=== PATIENT | female | born 1965 | race Caucasian/White ===

== ENCOUNTER 2022-10-11 12:31 | Outpatient (CLI) | payer OTHER, SELFPAY ==
--- NOTE | 2022-10-11 14:06 | W.PM.STED ---
Stress Test Note Date Time Seen by Provider: Date Seen: 10/11/22 Date of test: 10/11/22 Providers Referring provider: Tricia Stern Primary care provider: Tricia Stern Stress test physician: Meri Lopez Stress Test Note Stress test ordered: Stress Echo Indication for test: Chest pain, cardiac stress test medical history reviewed. Stress test medicine: None Results discussion: Resting EKG: Sinus rhythm, 61 beats per minute Resting blood pressure: 126/86 Patient exercised on the treadmill following a standard [place] protocol. She exercised to 12 minutes, terminating test due to reaching near maximal heart rate as well as reaching exercise capacity. She had no arrhythmias, no EKG evidence of ischemia. With this level of exercise, she achieved 12.1 Mets. She had a maximum heart rate of 164 beats per minute which was 118% of a calculated target 138, calculated maximal heart rate 162. She had maximum systolic blood pressure 174/80, rate pressure product of 28,536. She tolerated this exercise wonderfully. Impression: Subjectively negative, objectively negative EKG portion of this stress echo. Follow up suggested: Await echo images to couple this for a full formal diagnostic, patient discharged to home in excellent condition.
== END 2022-10-11 12:32 | disposition home or self-care (01) ==
LOC: STRESS 12:31
PROVIDERS: PCP Emergency Medicine; Visit Provider Emergency Medicine
DX: R07.9 Chest pain, unspecified (principal)
CPT/HCPCS: 93016; 93325; 93351

== ENCOUNTER 2023-11-22 08:30 | Outpatient (CLI) | payer OTHER, SELFPAY | END 2023-11-22 08:31 | disposition home or self-care (01) | LOC: NFLDREF 11-26 18:59 | PROVIDERS: PCP Emergency Medicine; Referring Provider Emergency Medicine; Visit Provider Emergency Medicine | DX: E78.00 Pure hypercholesterolemia, unspecified (principal); R53.83 Other fatigue | CPT/HCPCS: 80053; 80061; 82306 ==

== ENCOUNTER 2024-01-31 09:50 | Outpatient (CLI) | payer OTHER, SELFPAY ==
--- NOTE | 2024-01-31 10:15 | MM_ITS ---
Patient: YARI BRAGG Facility:?[facility] Patient ID:?[id number] Site Patient ID:?[id number]. Site [id number]. :?[id number] Study:?XRay-Breast Bilateral 3D-01/31/2024 10:29:44 AM Ordering Physician:Keesha Final Report: BILATERAL SCREENING MAMMOGRAM WITH COMPUTER-AIDED DETECTION AND TOMOSYNTHESIS TECHNIQUE: CC and MLO views were obtained. These mammographic images have been obtained using full-field digital technique. These mammographic images were interpreted with the benefit of computer-aided detection. Breast Tomosynthesis was used in this interpretation. COMPARISON FILM: 10/11/2020, 12/03/2017, 11/22/2016. FINDINGS: There are scattered areas of fibroglandular density. IMPRESSION: There is no radiographic evidence for malignancy. ASSESSMENT: BI-RADS Category 1: Negative RECOMMENDATION: Routine screening mammogram in 1 year. A lay language report of this examination will be provided to the patient. Kirt Becker M.D. Diagnostic Radiologist [email or web address] DSM/sp R& Transcribed: 4:19 p.m. SP/Dictated by: Kirt Becker MD @ 01/31/2024 12:32:00 PM Signed by:?Kirt Becker MD @01/31/2024 4:21:34 PM (Electronic Signature)
== END 2024-01-31 09:51 | disposition home or self-care (01) ==
LOC: MAMMO 09:51
PROVIDERS: PCP Emergency Medicine; Visit Provider Family Medicine
DX: Z12.31 Encounter for screening mammogram for malignant neoplasm of breast (principal)
CPT/HCPCS: 77063; 77067

== ENCOUNTER 2024-05-24 18:35 | Emergency (ER) | payer OTHER, SELFPAY ==
[2024-05-24] VITALS (20 sets, daily range): BP systolic 107–130; BP diastolic 75–96; PULSE 53–62; RESP 14–20; TEMP 36.9; O2SAT 95–98; BMI 30.6
--- NOTE | 2024-05-24 19:05 | CRLHL7_ITS ---
For Patients: As a result of the Century Cures Act, medical imaging exams and procedure reports are released immediately into your electronic medical record. You may view this report before your referring provider. If you have questions, please contact your health care provider. INDICATION: Short of breath. Chest pain. COMPARISON: : 25 September 2022 TECHNIQUE: Two view chest. FINDINGS: The lungs are clear. The heart, mediastinum and pulmonary vessels are of normal size. There is no evidence of pleural disease. IMPRESSION: Negative chest. Dictated by Valentino Mathias MD @ 05/24/2024 8:17:30 PM (Electronically Signed)
--- NOTE | 2024-05-24 19:13 | ED.CHESTPAIN ---
HPI - Chest Pain General Date Seen: 05/24/24 Chief Complaint: Chest Pain Stated Complaint: chest pain L side Time Seen by Provider: 05/24/24 18:45 Source: patient and family Mode of arrival: ambulatory Limitations: no limitations History of Present Illness HPI narrative: Patient is a 59-year-old female who presents here ambulatory with her with a history of chest pain on the left side of her chest with maybe some radiation to her jaw, bilaterally. There is no radiation to her arm her back. She describes and now is just pressure with no pain, this is been now for the last 12 hours or so on off lasting for a few minutes to seconds, and then going away with some possible little pressure, she describes burping also with this. She has no history of previous heart disease, she does have a history of hyperlipidemia, negative family history negative hypertension negative diabetes no history of previous DVTs or pulmonary emboli although she did drive back from [place] today as she has been taking care of her [id number] premature grandchildren. There was some increased stress over the course of the weekend as there is no nursing help. She had a pull on overnight shift. So possibly increased stress. No increased leg swelling, no syncope, no tearing sensation in her chest. Denies a history of drug use or alcohol. Or smoking history. MD complaint: chest pain and chest heaviness Onset (ago): hour(s) Timing of current episode: episodic Prior episodes: No Onset: during rest and during exertion Pain location: substernal and left chest Pain radiation: jaw/teeth Severity: mild Quality: heaviness Relieving factors: nothing Exacerbating factors: nothing Treatment prior to arrival: none Risk Factors Coronary artery disease risk factors: hyperlipidemia Thoracic aortic dissection risk factors: none Related Data On Oral Contraceptives: No Previous Rx's ?Medication ?Instructions ?Recorded sertraline 25 mg tablet 25 mg PO QDAY #90 tabs 11/08/23 rosuvastatin 20 mg tablet 20 mg PO QDAY #90 tabs 02/28/24 valacyclovir 1 gram tablet 1,000 mg PO TID #21 tabs 02/28/24 Allergies Allergy/AdvReac Type Severity Reaction Status Date / Time No Known Drug Allergies Allergy Verified 02/28/24 09:57 Review of Systems Status of ROS Reports: 10 or more systems reviewed and unremarkable except as noted in History and below [facility] Medical History Herpes zoster ?B02.9 - Zoster without complications (ICD-10) COVID-19 virus infection ?U07.1 - COVID-19 (ICD-10) Surgical History History of colonoscopy ?Z98.890 - Other specified postprocedural states (ICD-10) Family History Paternal Grandmother Breast cancer Father Coronary artery disease High blood pressure Hyperlipidemia Maternal Grandmother Diabetes Paternal Grandfather Melanoma Other Stroke Social History Narrative: Non smoker Does not drink alcohol Does not use illicit drugs Smoking Status: Never smoker Non-prescribed substance use: denies use Little interest or pleasure in doing things: several days Feeling down, depressed, or hopeless: several days Exam Narrative Exam Narrative: Patient is speaking normally, no problem with slurring words, oriented x3. Head eyes ears nose and throat exam show equal pupils, no scleral icterus, extraocular muscles are normal, no facial droop, speech is normal, trachea normal and midline. Thyroid normal midline palpable not enlarged. Chest shows symmetrical rise bilaterally, normal auscultation with no wheezes, no increased work of breathing, no overt bruising or lesions seen, no tenderness is noted on auscultation. Heart sounds normal with no S3-S4 no murmurs clicks or gallops. Abdomen shows no obvious masses or hepatosplenomegaly, no organomegaly, bowel sounds are normal in all quadrants. No tenderness is noted also in all quadrants. Upper and lower extremities show normal power, normal range of motion, pulses are normal, sensations normal, fine motor movements are normal, pelvis is stable to rocking. Cervical spine shows normal range of motion, and palpably not tender. Thoracic spine shows normal range of motion, and palpably not tender, lumbar spine shows no tenderness to palpation percussion and is otherwise normal range of motion. Skin shows no rashes, petechiae or eccymosis. Const Vital Signs, click to edit/add: Vital Signs - 24 hr 05/24/24 18:53 05/24/24 19:05 05/24/24 19:09 Temperature 98.5 F Pulse Rate 60 58 L Pulse Rate [Left Pulse Oximeter] 62 Respiratory Rate 20 16 Blood Pressure 119/81 Blood Pressure [Left Upper Arm] 130/96 H Pulse Oximetry 96 96 97 Oxygen Delivery Method Room Air 05/24/24 19:15 05/24/24 19:30 05/24/24 19:32 Temperature Pulse Rate 62 56 L 56 L Pulse Rate [Left Pulse Oximeter] Respiratory Rate 18 Blood Pressure 130/81 Blood Pressure [Left Upper Arm] Pulse Oximetry 97 97 98 Oxygen Delivery Method 05/24/24 19:45 05/24/24 20:00 05/24/24 20:01 Temperature Pulse Rate 56 L 57 L 56 L Pulse Rate [Left Pulse Oximeter] Respiratory Rate Blood Pressure 124/87 Blood Pressure [Left Upper Arm] Pulse Oximetry 97 97 98 Oxygen Delivery Method 05/24/24 20:02 05/24/24 20:15 05/24/24 20:30 Temperature Pulse Rate 58 L 60 54 L Pulse Rate [Left Pulse Oximeter] Respiratory Rate Blood Pressure Blood Pressure [Left Upper Arm] Pulse Oximetry 97 98 97 Oxygen Delivery Method 05/24/24 20:32 05/24/24 20:45 05/24/24 21:00 Temperature Pulse Rate 55 L 59 L 53 L Pulse Rate [Left Pulse Oximeter] Respiratory Rate 14 Blood Pressure 107/75 Blood Pressure [Left Upper Arm] Pulse Oximetry 96 98 96 Oxygen Delivery Method 05/24/24 21:02 05/24/24 21:15 05/24/24 21:30 Temperature Pulse Rate 55 L 56 L 58 L Pulse Rate [Left Pulse Oximeter] Respiratory Rate 14 Blood Pressure 112/76 Blood Pressure [Left Upper Arm] Pulse Oximetry 98 95 95 Oxygen Delivery Method 05/24/24 21:31 05/24/24 21:45 Temperature Pulse Rate 57 L 56 L Pulse Rate [Left Pulse Oximeter] Respiratory Rate 16 Blood Pressure 117/85 Blood Pressure [Left Upper Arm] Pulse Oximetry 95 95 Oxygen Delivery Method Documenting provider has reviewed patient's vital signs: yes Course Course ED Course: EKG x2 shows no acute changes troponins are negative she remains pain-free. I do think this is unlikely to be cardiac disease in no she does have some risk factors, heart score is low. I do think that she needs to follow up with her regular physician and possibly repeat the stress echo she has ongoing symptoms or findings. She was very comfortable this plan we will discharge her at this point. Reevaluation(s) Time of Reevaluation #1: 20:41 Reevaluation #1: Patient remains pain-free, we will repeat her troponin, an EKG. If she has on a negative or horizontal delta that I think we can let her go home, with follow-up. Vital Signs Vital signs: Initial Vital Signs Temperature 98.5 F 05/24/24 18:53 Temperature Source Temporal Artery Scan 05/24/24 18:53 Pulse Rate 62 05/24/24 18:53 Pulse Rhythm Regular 05/24/24 18:53 Pulse Strength 3+ Normal 05/24/24 18:53 Respiratory Rate 20 05/24/24 18:53 Blood Pressure 130/96 H 05/24/24 18:53 Blood Pressure Mean 107 H 05/24/24 18:53 Blood Pressure Position Sitting 05/24/24 18:53 Pulse Oximetry 96 05/24/24 18:53 Oxygen Delivery Method Room Air 05/24/24 18:53 Vital Signs Temperature 98.5 F 05/24/24 18:53 Pulse Rate 62 05/24/24 18:53 Respiratory Rate 20 05/24/24 18:53 Blood Pressure 130/96 H 05/24/24 18:53 Pulse Oximetry 96 05/24/24 18:53 Oxygen Delivery Method Room Air 05/24/24 18:53 Temperature 98.5 F 05/24/24 18:53 Pulse Rate 56 L 05/24/24 21:45 Respiratory Rate 16 05/24/24 21:31 Blood Pressure 117/85 05/24/24 21:31 Pulse Oximetry 95 05/24/24 21:45 Oxygen Delivery Method Room Air 05/24/24 18:53 Medications Administered Medications: Discontinued Medications Generic Name Dose Route Start Last Admin Trade Name Freq PRN Reason Stop Dose Admin Aspirin 324 mg 05/24/24 19:05 05/24/24 19:14 Aspirin 81 Mg Tab.Chew PO 05/24/24 19:06 324 mg ONCE ONE Administration MDM - Chest Pain MDM Narrative Medical decision making narrative: During the evaluation of this patient I considered multiple differential diagnosis is. The life-threatening differential diagnosis include coronary disease/IN, pulmonary embolism, pneumothorax, pneumonia, and aortic dissection. Other differential diagnosis included but were not limited to pericarditis, myocarditis, chest wall pain, GERD, esophageal rupture, rib fracture contusion, pleurisy, as well as other etiologies. Medical Records Data Attestation: I reviewed the patient's medical records. Lab Data Attestation: I reviewed the patient's lab results. Labs: Lab Results 05/24/24 05/24/24 Range/Units 19:00 21:00 WBC 4.99 (4.50-11.00) K/uL RBC 4.81 (4.00-5.20) m/uL Hgb 13.9 (12.0-16.0) gm/dL Hct 44.1 (33.0-51.0) % MCV 92 (80-100) fL MCH 29 (26-34) pg MCHC 32 (32-36) gm/dL RDW Coeff of [place] 12.5 (11.5-15.5) % Plt Count 186 (140-440) K/uL Neut % (Auto) 41.5 L (42.0-72.0) % Lymph % (Auto) 48.1 H (20-44) % [place] % (Auto) 7.0 (0.0-11.0) % Eos % (Auto) 2.6 (0.0-7.0) % Baso % (Auto) 0.8 (0.0-3.0) % Neut # (Auto) 2.10 (1.7-7.0) K/uL Lymph # (Auto) 2.40 (0.90-2.90) K/uL [place] # (Auto) 0.30 (0.00-0.90) K/UL Eos # (Auto) 0.13 (0.00-0.50) K/uL Baso # (Auto) 0.04 (0.00-0.30) K/uL Abs Immat Gran (auto) 0.00 (0.00-0.30) K/uL Imm/Tot Granulo (auto) 0.0 % INR 1.00 (0.91-1.10) APTT 31 (23-33) Seconds D-Dimer Quant (PE/DVT) < 0.22 (0.00-0.50) ug/ml Sodium 139 (135-149) mmol/L Potassium 4.0 (3.6-5.1) mmol/L Chloride 103 (96-114) mmol/L Carbon Dioxide 27 (20-32) mmol/L Anion Gap 9 (7-15) mEq/L BUN 18 (7-30) mg/dL Creatinine 0.8 (0.5-1.5) mg/dL Estimated Creat Clear 67.29 Estimated GFR 84 ml/min Glucose 113 (60-115) mg/dL Calcium 9.5 (8.4-10.6) mg/dL NT-Pro-B Natriuret Pep < 20 pg/mL POC Troponin I 0.00 L (0.01-0.04) ng/ml Imaging Data Chest x-ray: Attestation: I have reviewed the pertinent imaging results. My impression: Chest x-ray shows no acute changes ECG Data Attestation: I personally reviewed and interpreted this ECG as follows: ECG interpretation date: 05/24/24 Prior ECG tracings: available for review Interpretation: EKG shows normal sinus rhythm with mild sinus bradycardia at 58, there is some ST wave flattening noted inferiorly and laterally. This was present on previous EKG noted at 09/18 Discharge Plan Discharge Clinical Impression: Chest pain Patient Disposition: Home w/ Parent or Adult Condition: Stable Instructions: Chest Pain (DC) Additional Instructions: Home rest, consider stress test as an outpatient specifically stress echo, I know you did this in 2021, it is usually good for about a year to a little bit better than a year. All your tests are negative here, including test for blood clot and also heart attack. This does not rule out angina, but I think this is a low likelihood given what you tell me. Possibilities for other cause of this include reflux. Return if increasing chest pain shortness of breath or other issues. Prescriptions: No Action sertraline 25 mg tablet 25 mg PO QDAY Qty: 90 4RF valacyclovir 1 gram tablet 1,000 mg PO TID Qty: 21 0RF rosuvastatin 20 mg tablet 20 mg PO QDAY Qty: 90 3RF Follow Up/Referrals: Tricia Stern MD [Primary Care Provider] - Stand Alone Forms: [facility] Info Instructions
[2024-05-24] MEDS: ASPIRIN 81 MG TAB.CHEW 324 MG PO (19:14)
[2024-05-24 19:23] LABS: Basophils Absolute Auto 0.04 K/uL (0.00-0.30); Basophils Percent Auto 0.8 % (0.0-3.0); Eosinophils Absolute Auto 0.13 K/uL (0.00-0.50); Eosinophils Percent Auto 2.6 % (0.0-7.0); Hematocrit 44.1 % (33.0-51.0); Hemoglobin* 13.9 gm/dL (12.0-16.0); Lymphocytes Percent Auto 48.1 % (20-44); Mean Corpuscular HGB Conc 32 gm/dL (32-36); Mean Corpuscular Hemoglobin 29 pg (26-34); Mean Corpuscular Volume 92 fL (80-100); Neutrophils Percent Auto 41.5 % (42.0-72.0); Platelet Count* 186 K/uL (140-440); RDW Coefficient of Variation % 12.5 % (11.5-15.5); Red Blood Count 4.81 m/uL (4.00-5.20); White Blood Count* 4.99 K/uL (4.50-11.00)
[2024-05-24 19:39] LABS: Slide Review Reflex No
[2024-05-24 19:55] LABS: Chloride* 103 mmol/L (96-114); Sodium* 139 mmol/L (135-149)
[2024-05-24 19:58] LABS: Anion Gap 9 mEq/L (7-15); Carbon Dioxide* 27 mmol/L (20-32); Creatinine* 0.8 mg/dL (0.5-1.5); Est. Creatinine Clearance* 67.29; Estimated Glomerular Filt Rate 84 ml/min
[2024-05-24 19:59] LABS: Blood Urea Nitrogen* 18 mg/dL (7-30); Calcium* 9.5 mg/dL (8.4-10.6); Glucose* 113 mg/dL (60-115)
[2024-05-24 20:14] LABS: NT Pro B Type NatriureticPept* < 20 pg/mL; Prothrombin Time 13.8 Seconds
[2024-05-24 20:15] LABS: Partial Thromboplastin Time* 31 Seconds (23-33)
[2024-05-24 20:18] LABS: D Dimer Quantitative* < 0.22 ug/ml (0.00-0.50)
== END 2024-05-24 22:02 | disposition home or self-care (01) ==
PROVIDERS: Emergency Provider Family Medicine; PCP Emergency Medicine
DX: R07.9 Chest pain, unspecified (principal)
CPT/HCPCS: 36415; 71046; 80048; 83880; 84484; 85025; 85379; 85610; 85730; 93005; 94761; 99284; 99285; A9270

== ENCOUNTER 2024-08-04 10:30 | Outpatient (CLI) | payer OTHER, SELFPAY | END 2024-08-04 10:31 | disposition home or self-care (01) | LOC: NFLDREF 08-07 11:21 | PROVIDERS: PCP Emergency Medicine; Referring Provider Emergency Medicine; Visit Provider Family Medicine | DX: E78.2 Mixed hyperlipidemia (principal); E04.1 Nontoxic single thyroid nodule | CPT/HCPCS: 80061 ==

== ENCOUNTER 2024-08-11 15:40 | Outpatient (CLI) | payer OTHER, SELFPAY ==
--- NOTE | 2024-08-11 16:00 | CRLHL7_ITS ---
For Patients: As a result of the Century Cures Act, medical imaging exams and procedure reports are released immediately into your electronic medical record. You may view this report before your referring provider. If you have questions, please contact your health care provider. INDICATION: Nontoxic single thyroid nodule COMPARISON: none TECHNIQUE: Joaquin scale and color Doppler images were acquired of the thyroid gland. FINDINGS: The thyroid gland demonstrates heterogeneous echogenicity and has a lobular outer contour. The right lobe measures 4.0 x 1.7 x 2.0 cm and the left lobe measures 3.4 x 2.1 x 1.7 cm in size. Isthmus measures 4 millimeters. There are no suspicious masses or nodules. The color Doppler images demonstrate normal vascularity. There is no evidence of cervical lymphadenopathy or parathyroid mass. IMPRESSION: No thyroid nodule. Dictated by Kirt Becker MD @ 08/12/2024 10:04:36 AM (Electronically Signed)
== END 2024-08-11 15:41 | disposition home or self-care (01) ==
PROVIDERS: PCP Family Medicine; Visit Provider Family Medicine
DX: E04.1 Nontoxic single thyroid nodule (principal)
CPT/HCPCS: 76536

== ENCOUNTER 2025-01-26 08:20 | Outpatient (CLI) | payer OTHER, SELFPAY | END 2025-01-26 08:21 | disposition home or self-care (01) | LOC: NFLDREF 01-27 06:00 | PROVIDERS: PCP Family Medicine; Referring Provider Family Medicine; Visit Provider Family Medicine | DX: E78.2 Mixed hyperlipidemia (principal) | CPT/HCPCS: 80061 ==

== ENCOUNTER 2025-06-03 17:22 | Outpatient (CLI) | payer OTHER, SELFPAY | END 2025-06-03 17:23 | disposition home or self-care (01) | PROVIDERS: PCP Family Medicine; Visit Provider Physician Assistant | DX: K14.6 Glossodynia (principal); Z13.29 Encounter for screening for other suspected endocrine disorder | CPT/HCPCS: 82607; 84439; 84443 ==

== ENCOUNTER 2025-06-11 08:06 | Outpatient (CLI) | payer OTHER, SELFPAY | END 2025-06-11 08:07 | disposition home or self-care (01) | LOC: NFLDREF 06-15 17:37 | PROVIDERS: PCP Family Medicine; Referring Provider Family Medicine; Visit Provider Family Medicine | DX: E03.9 Hypothyroidism, unspecified (principal); E53.8 Deficiency of other specified B group vitamins; F33.8 Other recurrent depressive disorders | CPT/HCPCS: 82533; 82607; 84439; 84443 ==

== ENCOUNTER 2025-10-08 14:48 | Outpatient (CLI) | payer OTHER, SELFPAY | END 2025-10-08 14:49 | disposition home or self-care (01) | LOC: LKVREF 14:52 | PROVIDERS: PCP Family Medicine; Visit Provider Family Medicine | DX: E78.2 Mixed hyperlipidemia (principal); E03.9 Hypothyroidism, unspecified; E53.8 Deficiency of other specified B group vitamins | CPT/HCPCS: 82607; 83690; 84439; 84443 ==